=== PATIENT | female | born 1960 | race Caucasian/White ===

== ENCOUNTER 2017-05-26 16:20 | Outpatient (CLI) ==
--- NOTE | 2017-05-27 08:09 | DI ---
EXAM: Three views of the right shoulder HISTORY: Right shoulder pain. COMPARISON: None FINDINGS: The right shoulder demonstrates no cortical irregularity or displaced fracture. There is m ild narrowing and osteophyte formation of the acromioclavicular joint. Glenohumeral joint is normal. There is no lytic or blastic lesion. The soft tissues are normal. IMPRESSION: No acute abnormality or displaced fracture of the right shoulder.
--- NOTE | 2017-05-27 08:10 | DI ---
EXAM: Two views of the left hip HISTORY: Pain in the left hip. COMPARISON: None FINDINGS: There is no cortical irregularity or displaced fracture of the left hip. There is no lytic or blastic lesion. The joint space is maintained. Limited views of the adjacent pelvis are normal. The soft tissues are normal. Small osteophyte of the greater trochanter is present. IMPRESSION: No acute abnormality or displaced fracture of the left hip.
--- NOTE | 2017-05-27 08:12 | DI ---
EXAM: Three views of the left foot HISTORY: Left foot pain with history of bunion. COMPARISON: Left foot x-ray 12/08/2014 FINDINGS: There is hallux valgus deformity with moderate degenerative change and osteophyte formation . There is no displaced fracture or dislocation identified. Small osteophyte at the base of the fif th metatarsal is present. The arch is maintained. There are small calcaneal spurs present. The sof t tissues are normal. IMPRESSION: 1. 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 2. 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
== END 2017-05-26 16:21 | disposition home or self-care (01) ==
LOC: RAD 16:20
PROVIDERS: ATTEND Family Medicine
DX: M25.511 Pain in right shoulder (principal); M25.552 Pain in left hip; M21.612 Bunion of left foot; M79.672 Pain in left foot